=== PATIENT | male | born 1980 | race Caucasian/White ===

== ENCOUNTER 2020-11-08 06:53 | Outpatient (REF) | payer BC, SELFPAY ==
[2020-11-08 11:11] LABS: MANUAL DIFF FLAG NO
[2020-11-08 11:32] LABS: Basophils Percent Auto 0.3 % (0-2); Eosinophils Absolute Auto 0.1 X10*3/uL (0.0-0.4); Eosinophils Percent Auto 1.5 % (0-4); Hematocrit 42.6 % (42-52); Hemoglobin 14.3 g/dl (14.0-18.0); Imm Gran Abs Auto 0.01 X10*3/uL (0.00-0.03); Imm Gran Pct Auto 0.3 % (0.0-0.4); Lymphocytes Absolute Auto 1.6 X10*3/uL (1.2-4.9); Mean Corpuscular HGB Conc 33.6 g/dl (31.0-36.0); Mean Corpuscular Hemoglobin 33.3 pg (27.0-33.0); Mean Corpuscular Volume 99.3 fL (80-98); Mean Platelet Volume 10.6 fL (9.4-12.4); Monocytes Absolute Auto 0.5 X10*3/uL (0.1-1.2); Monocytes Percent Auto 11.5 % (2-11); Neutrophils Absolute Auto 1.8 X10*3/uL (2.0-8.3); Neutrophils Percent Auto 45.4 % (45-73); Platelet Count 212 X10*3/uL (160-400); Red Blood Count 4.29 X10*6/uL (4.60-5.80); Red Cell Distribution Width 11.7 % (11.0-16.0)
[2020-11-08 11:47] LABS: Alanine Aminotransferase 21 U/L (0-40); Albumin Level 4.4 g/dL (3.5-5.0); Alkaline Phosphatase 52 U/L (39-117); Anion Gap 17 (12-20); Aspartate Amino Transferase 20 U/L (5-37); Bilirubin Total 0.6 mg/dL (0.0-1.0); Blood Urea Nitrogen 13 mg/dL (9-16); Calcium 9.1 mg/dL (8.4-10.2); Carbon Dioxide 25 mmol/L (22-29); Chloride 101 mmol/L (96-108); Cholesterol 166 mg/dL; Estimated Glomerular Filt Rate > 60; Glucose Fasting 95 mg/dL (60-99); HDL Cholesterol 58 mg/dL; LDL Cholesterol Calculated 96 mg/dl; Potassium 4.5 mmol/l (3.3-5.1); Sodium 138 mmol/L (135-145); Triglycerides 63 mg/dL
[2020-11-08 11:52] LABS: Appearance Urine CLEAR; Color Urine YELLOW; Glucose Urine UA NEG (NEG); Leukocyte Esterase Urine NEG (NEG); Nitrite Urine NEG (NEG); Urine Blood TRACE (NEG); Urine Ketones NEG (NEG); Urine Protein NEG (NEG-TRACE)
[2020-11-08 12:10] LABS: RBC Urine 0-2 /HPF (0); Squamous Epithelial Cell Urine TRACE /LPF; WBC Urine 0 /HPF (0-4)
[2020-11-08 12:12] LABS: TSH reflex Free T4 2.04 mIU/mL (0.32-4.0)
== END 2020-11-08 06:54 | disposition home or self-care (01) ==
LOC: HO.HMGCLDS 06:53
PROVIDERS: PCP Internal Medicine; Visit Provider Internal Medicine
DX: Z00.00 Encounter for general adult medical examination without abnormal findings (principal)
CPT/HCPCS: 36415; 80053; 80061; 81001; 84443; 85025

== ENCOUNTER 2020-12-22 12:15 | Outpatient (REF) | payer BC, SELFPAY | END 2020-12-22 12:16 | disposition home or self-care (01) | LOC: HO.LAB 12:15 | PROVIDERS: Visit Provider Internal Medicine | DX: Z20.822 Contact with and (suspected) exposure to COVID-19 (principal) | CPT/HCPCS: 36415; C9803; U0003; U0005 ==

== ENCOUNTER 2021-11-07 14:29 | Outpatient (REF) | payer BC, SELFPAY ==
[2021-11-07 15:26] LABS: Influenza A PCR NEGATIVE (Negative); Influenza B PCR NEGATIVE (Negative); Resp Syncy Virus RNA Qual PCR NEGATIVE (Negative); SARS COV2 PCR INHOUSE POSITIVE (Negative)
== END 2021-11-07 14:30 | disposition home or self-care (01) ==
LOC: HO.LNP 14:29
PROVIDERS: Visit Provider Physician Assistant
DX: Z20.822 Contact with and (suspected) exposure to COVID-19 (principal)
CPT/HCPCS: 0241U

== ENCOUNTER 2022-11-27 06:47 | Outpatient (REF) | payer BC, SELFPAY ==
--- NOTE | ~2022-11-27 | XR_ITS ---
EXAMINATION: XR ELBOW, RIGHT XR FOREARM, RIGHT XR HAND/WRIST, RIGHT CLINICAL INFORMATION: Pain in the right forearm, wrist, and elbow COMPARISON: None TECHNIQUE: AP, lateral, and oblique views of the right elbow. AP and lateral views of the right forearm. PA, lateral, oblique, and navicular views of the right hand and wrist. FINDINGS: RIGHT ELBOW: Slight osseous prominence at the sublime tubercle of the coronoid process. No fracture or malalignment. Bone mineralization is normal. Joint spaces are well-preserved. Soft tissues are unremarkable. No joint effusion. RIGHT FOREARM: No fracture or malalignment. Bone mineralization is normal. Soft tissues are unremarkable. No acute osseous findings. 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 Joints otherwise well-preserved. No fracture or malalignment. Bone mineralization is normal. No erosions. Soft tissues are unremarkable. Carpal alignment is normal. XR/XR hand wrist RT IMPRESSION: 1. Osseous prominence at the sublime tubercle of the coronoid process of the ulna which may reflect chronic stress-related changes at the insertion of the UCL. Otherwise normal radiographs of the elbow. 2. 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 Otherwise normal radiographs of the hand and wrist. 3. Normal forearm radiographs.
--- NOTE | ~2022-11-27 | XR_ITS ---
EXAMINATION: XR ELBOW, RIGHT XR FOREARM, RIGHT XR HAND/WRIST, RIGHT CLINICAL INFORMATION: Pain in the right forearm, wrist, and elbow COMPARISON: None TECHNIQUE: AP, lateral, and oblique views of the right elbow. AP and lateral views of the right forearm. PA, lateral, oblique, and navicular views of the right hand and wrist. FINDINGS: RIGHT ELBOW: Slight osseous prominence at the sublime tubercle of the coronoid process. No fracture or malalignment. Bone mineralization is normal. Joint spaces are well-preserved. Soft tissues are unremarkable. No joint effusion. RIGHT FOREARM: No fracture or malalignment. Bone mineralization is normal. Soft tissues are unremarkable. No acute osseous findings. 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 Joints otherwise well-preserved. No fracture or malalignment. Bone mineralization is normal. No erosions. Soft tissues are unremarkable. Carpal alignment is normal. XR/XR forearm RT 2V IMPRESSION: 1. Osseous prominence at the sublime tubercle of the coronoid process of the ulna which may reflect chronic stress-related changes at the insertion of the UCL. Otherwise normal radiographs of the elbow. 2. 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 Otherwise normal radiographs of the hand and wrist. 3. Normal forearm radiographs.
--- NOTE | ~2022-11-27 | XR_ITS ---
EXAMINATION: XR ELBOW, RIGHT XR FOREARM, RIGHT XR HAND/WRIST, RIGHT CLINICAL INFORMATION: Pain in the right forearm, wrist, and elbow COMPARISON: None TECHNIQUE: AP, lateral, and oblique views of the right elbow. AP and lateral views of the right forearm. PA, lateral, oblique, and navicular views of the right hand and wrist. FINDINGS: RIGHT ELBOW: Slight osseous prominence at the sublime tubercle of the coronoid process. No fracture or malalignment. Bone mineralization is normal. Joint spaces are well-preserved. Soft tissues are unremarkable. No joint effusion. RIGHT FOREARM: No fracture or malalignment. Bone mineralization is normal. Soft tissues are unremarkable. No acute osseous findings. 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 Joints otherwise well-preserved. No fracture or malalignment. Bone mineralization is normal. No erosions. Soft tissues are unremarkable. Carpal alignment is normal. XR/XR elbow RT min 3V IMPRESSION: 1. Osseous prominence at the sublime tubercle of the coronoid process of the ulna which may reflect chronic stress-related changes at the insertion of the UCL. Otherwise normal radiographs of the elbow. 2. 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 Otherwise normal radiographs of the hand and wrist. 3. Normal forearm radiographs.
[2022-11-27 06:52] LABS: MANUAL DIFF FLAG NO
[2022-11-27 07:31] LABS: Basophils Percent Auto 0.4 % (0-2); Eosinophils Absolute Auto 0.1 X10*3/uL (0.0-0.4); Eosinophils Percent Auto 1.7 % (0-4); Hematocrit 42.3 % (42.0-52.0); Hemoglobin 14.5 g/dl (14.0-18.0); Imm Gran Abs Auto 0.01 X10*3/uL (0.00-0.03); Imm Gran Pct Auto 0.2 % (0.0-0.4); Lymphocytes Absolute Auto 1.5 X10*3/uL (1.2-4.9); Lymphocytes Percent Auto 31.6 % (20-40); Mean Corpuscular HGB Conc 34.3 g/dl (31.0-36.0); Mean Corpuscular Volume 99.1 fL (80.0-98.0); Mean Platelet Volume 9.6 fL (9.4-12.4); Monocytes Absolute Auto 0.5 X10*3/uL (0.1-1.2); Monocytes Percent Auto 10.5 % (2-11); Neutrophils Absolute Auto 2.6 x10*3/uL (2.0-8.3); Neutrophils Percent Auto 55.6 % (45-73); Platelet Count 212 X10*3/uL (160-400); Red Blood Count 4.27 X10*6/uL (4.60-5.80); Red Cell Distribution Width 11.9 % (11.0-16.0); White Blood Count 4.6 X10*3/uL (4.8-10.8)
[2022-11-27 07:38] LABS: Appearance Urine Clear; Color Urine Yellow; Glucose Urine UA Negative (Negative); Leukocyte Esterase Urine Negative (Negative); Nitrite Urine Negative (Negative); PH 6.5 (5.0-9.0); Specific Gravity - Urine <= 1.005 (1.005-1.025); Urine Blood Negative (Negative); Urine Ketones Negative (Negative); Urine Protein Negative (Neg-Trace)
[2022-11-27 08:06] LABS: Alanine Aminotransferase 22 U/L (0-40); Albumin Level 4.4 g/dL (3.5-5.0); Alkaline Phosphatase 55 U/L (39-117); Anion Gap 13 (12-20); Aspartate Amino Transferase 19 U/L (5-37); Blood Urea Nitrogen 11 mg/dL (9-16); Calcium 9.5 mg/dL (8.4-10.2); Carbon Dioxide 27 mmol/L (22-29); Chloride 104 mmol/L (96-108); Cholesterol 180 mg/dL; Estimated Glomerular Filt Rate > 60; Glucose Fasting 102 mg/dL (60-99); HDL Cholesterol 55 mg/dL; LDL Cholesterol Calculated 109 mg/dl; Potassium 4.2 mmol/L (3.3-5.1); Sodium 140 mmol/L (135-145); Triglycerides 84 mg/dL
[2022-11-27 08:23] LABS: TSH reflex Free T4 2.76 uIU/mL (0.32-4.0); Vitamin D 25-OH Total 33.3 ng/mL (>30)
== END 2022-11-27 06:48 | disposition home or self-care (01) ==
LOC: HO.XRAY 06:47
PROVIDERS: PCP Internal Medicine; Visit Provider Internal Medicine
DX: Z00.00 Encounter for general adult medical examination without abnormal findings (principal); M79.631 Pain in right forearm; M25.521 Pain in right elbow; M25.531 Pain in right wrist; E78.00 Pure hypercholesterolemia, unspecified; R30.0 Dysuria; E55.9 Vitamin D deficiency, unspecified
CPT/HCPCS: 36415; 73080; 73090; 73110; 73130; 80053; 80061; 81003; 82306; 84443; 85025

== ENCOUNTER 2023-01-03 14:30 | Outpatient (REF) | payer BC, SELFPAY ==
--- NOTE | ~2023-01-03 | XR_ITS ---
EXAMINATION: XR ABDOMEN KUB CLINICAL INDICATION: Right upper quadrant pain. COMPARISON: None TECHNIQUE: AP view of the abdomen. FINDINGS: The bowel gas pattern is normal with no evidence of ileus or obstruction. No unusual soft tissue calcifications are noted. Calcifications overlying the pelvis likely represent phleboliths. Mild thoracic dextro scoliosis is seen with apex at L2-3. XR/XR KUB IMPRESSION: Nonobstructive bowel gas pattern. No other significant abnormality.
== END 2023-01-03 14:31 | disposition home or self-care (01) ==
LOC: HO.XRAY 14:30
PROVIDERS: PCP Internal Medicine; Visit Provider Hospitalist
DX: R10.11 Right upper quadrant pain (principal)
CPT/HCPCS: 74018

== ENCOUNTER 2023-01-29 07:41 | Outpatient (REF) | payer BC, SELFPAY ==
--- NOTE | ~2023-01-29 | US_ITS ---
EXAMINATION: US ABDOMEN COMPLETE CLINICAL INFORMATION: Right upper quadrant pain. COMPARISON: X-ray abdomen KUB 01/03/2023. TECHNIQUE: Real-time imaging of the abdominal viscera. FINDINGS: PANCREAS: Normal. ABDOMINAL AORTA: The proximal, mid, and distal segments are normal in caliber. INFERIOR VENA CAVA: Visualized portions are normal. LIVER: Normal. The liver is normal in size. The liver contour is normal. Parenchymal echogenicity is normal. No focal hepatic lesion. There is no intrahepatic biliary duct dilatation seen. GALLBLADDER: Normal. The gallbladder is physiologically distended without evidence of stones, sludge, polyps, wall thickening or pericholecystic fluid. COMMON BILE DUCT: Normal in caliber measuring 0.5 cm in diameter. RIGHT KIDNEY: Normal. No hydronephrosis. No renal calculi or focal parenchymal lesions. The kidney measures 10.4 cm in maximum dimension. LEFT KIDNEY: There is a 1.0 cm well-circumscribed nearly anechoic lesion with posterior through transmission and sharp back wall consistent with a minimally complex cyst. No imaging follow-up is recommended. No hydronephrosis or renal calculi. The kidney measures 10.2 cm in maximum dimension. SPLEEN: Normal. The spleen measures 9.6 cm in maximum dimension. FREE FLUID: None. US/US abdomen complete IMPRESSION: No explanation for right upper quadrant pain.
== END 2023-01-29 07:42 | disposition home or self-care (01) ==
LOC: HO.US 07:41
PROVIDERS: PCP Internal Medicine; Visit Provider Internal Medicine
DX: R10.11 Right upper quadrant pain (principal)
CPT/HCPCS: 76700

== ENCOUNTER 2023-02-06 13:21 | Outpatient (AMB) | payer BC, SELFPAY ==
[2023-02-06 13:30] VITALS: BP 112/68; PULSE 86; TEMP 36.1; O2SAT 99; BMI 23.8
--- NOTE | 2023-02-06 13:30 | A.OFFPC_ITS ---
Vital Signs 02/06/23 13:30 Height 6 ft Weight 176 lb BMI 23.8 BP 112/68 Blood Pressure Location Lt brachial Position Sitting Pulse 86 Pulse Source Pulse Oximeter Temp 96.9 F Temp Source Skin Pulse Oximetry (%) 99 Oxygen Delivery Method Room Air Intake Visit Reasons: review ultrasound results Intake Note: Patient is here to follow up on U/s results [employer] Specialist Required: No Allergies bee sting Allergy (Unknown, Uncoded 11/22/23 17:11) Unknown Medication List - Last Reconciled 02/06/23 by Jordon Tenorio MD No Known Home Meds Tobacco use date assessed: 02/06/23 HPI review ultrasound results HPI Details Patient comes in today for follow up of his recent abdominal symptoms He was seen at the walk-in in [place] last month on 01/03/23 for left lower quadrant abdominal pain that he felt started after eating some tongan fries He was initially sent for a KUB for further evaluation, which came out negative He was subsequently sent for an abdominal ultrasound, which came out normal as well with no pertinent findings to help explain his recent abdominal symptoms States that he is currently experiencing on and off pain but recently, the pain is mostly over his left upper abdominal area States that the pain sometimes gets worse when he is eating He denies any associated nausea or vomiting and states that his bowel movements have been regular - denies any constipation or diarrhea He denies any headaches or dizziness Denies any chest pains, no shortness of breath PFSH Medical History No significant past medical history Surgical History No pertinent past surgical history Family History Father Alive and well Mother Alive and well Social History Housing: House Alcohol intake: current Alcohol intake frequency: a few times a month Patient Tobacco Use Status: Never used Tobacco e-Cigarette/Vaping Use: Never Used Second Hand Smoke Exposure: No service: Yes Current occupational status: employed Cognitive needs: No Hearing needs: No Vision needs: No Questionnaire PHQ-9 Over the last 2 weeks, how often have you been bothered by any of the following problems? 1. Little interest or pleasure in doing things: not at all 2. Feeling down, depressed, or hopeless: not at all 3. Trouble falling or staying asleep, or sleeping too much: not at all 4. Feeling tired or having little energy: not at all 5. Poor appetite or overeating: not at all 6. Feeling bad about yourself - or that you are a failure or have let yourself or your family down: not at all 7. Trouble concentrating on things, such as reading the newspaper or watching television: not at all 8. Moving or speaking so slowly that other people could have noticed. Or the opposite - being so fidgety or restless that you have been moving around a lot more than usual: not at all 9. Thoughts that you would be better off or of hurting yourself in some way: not at all Total score: 0 Depression Screening Interpretation: Negative 11517 - PHQ-9 Billing: Yes Source: Developed by Drs. Mike Lin, Sneha Manzo, Kunal Almaraz and colleagues, with an educational mainor from [employer]. Thrive Questionnaire Date Thrive assessed: 11/19/22 AUDIT C Alcohol Use Questionnaire (AUDIT-C) 1. How often do you have a drink containing alcohol?: 2-4 times a month 2. How many drinks containing alcohol do you have on a typical day when you are drinking?: 1 or 2 3. How often do you have six or more drinks on one occasion?: Never Total Score: 2 Score Reviewed/Action Taken: Yes MARLO-7 AMB Questionnaire MARLO-7 Date MARLO - 7 assessed: 11/19/22 Feeling nervous, anxious, or on edge: 0 = Not at all Not being able to stop or control worryin = Not at all Worrying too much about different things: 0 = Not at all Trouble relaxin = Not at all Being so restless that it is hard to sit still: 0 = Not at all Becoming easily annoyed or irritable: 0 = Not at all Feeling afraid as if something awful might happen: 0 = Not at all Total MRALO-7 score (0-4 normal; 5-9 mild; 10-14 moderate; 15-21 severe): 0 Source: Developed by Drs. Mike Lin, Sneha Manzo, Kunal Almaraz and colleagues, with an educational mainor from [employer]. Review of Systems Const Denies fatigue, Denies fever(s) and Denies headache(s) ENT Denies dysphagia, Denies dizziness, Denies otalgia, Denies headache(s), Denies neck pain, Denies odynophagia and Denies sore throat Card Denies chest pain, Denies palpitations and Denies dyspnea Resp Denies cough and Denies dyspnea GI Reports abdominal pain (on and off, over the left upper abdomen - see HPI), Denies constipation, Denies dysphagia, Denies heartburn, Denies diarrhea, Denies nausea, Denies odynophagia and Denies vomiting Denies dysuria, Denies nocturia and Denies urinary frequency Musc Denies neck pain Neuro Denies dizziness and Denies headache(s) Endo Denies fatigue and Denies palpitations Physical exam (Primary Care) Vital Signs: Last Vital Signs Temp 96.9 F 02/06/23 13:30 Pulse 86 02/06/23 13:30 BP 112/68 02/06/23 13:30 Pulse Ox 99 02/06/23 13:30 Oxygen Delivery Method Room Air 02/06/23 13:30 BMI result Body Mass Index 23.8 Tobacco/Smoking Status: Tobacco use Status Tobacco use date assessed 02/06/23 02/06/23 13:31 Patient Tobacco Use Status Never used Tobacco 02/06/23 13:31 e-Cigarette/Vaping Use Never Used 02/06/23 13:31 PHQ-9: PHQ-9 Score PHQ-9: Total score 0 11/24/23 01:17 Depression Screening Interpretation: Negative Thrive Assessment: Date of Thrive Assessment Date Thrive assessed 11/19/22 02/06/23 13:31 Const General: no acute distress and alert Neck Neck: Yes no lymphadenopathy and Yes supple Resp Auscultation: clear to auscultation bilaterally, no rales and no wheezes Cardio Rate: regular rate Rhythm: regular rhythm Heart sounds: no murmurs GI Palpation (GI): Soft to palpation, Tenderness to palpation present (GI) (mild) in the LUQ, no guarding, not rigid, No hepatosplenomegaly present and No Rebound tenderness present Extrem General: Yes no clubbing, cyanosis or edema Assessment and Plan Assessment & Plan (1) Gastritis: Code(s): K29.70 - Gastritis, unspecified, without bleeding Qualifiers: Gastritis type: unspecified gastritis Chronicity: unspecified Gastritis bleeding: without bleeding Qualified Code(s): K29.70 - Gastritis, unspecified, without bleeding Plan: Discussed dietary restrictions Have advised patient again that his recent abdominal US came back normal but discussed that if he does have gastritis as suggested by his symptoms, an US would not be helpful Will have him start taking Omeprazole 40 mg QD x 14 days and if his symptoms are much better by then, can take this PRN Will also start him on Famotidine 20 mg Q HS PRN He is advised to call if he still does not experience any improvement of his symptoms in a month or so - may need referral to GI and EGD for further evaluation then Plan To return as scheduled in November 2023 for his annual physical examination Medications: New famotidine 20 mg PO BEDTIME 30 tabs 1RF 30 days omeprazole Take daily for 14 days and if symptoms are better then, can take as needed 40 mg PO DAILY 30 caps 1RF 30 days Coding Level of Care Code Est Pt Level 3 (56824) Diagnoses Gastritis without bleeding, unspecified chronicity, unspecified gastritis type K29.70 Gastritis type: unspecified gastritis Chronicity: unspecified Gastritis bleeding: without bleeding
== END 2023-02-06 14:07 | disposition home or self-care (01) ==
LOC: HO.HMGH 13:21
PROVIDERS: PCP Internal Medicine; Visit Provider Internal Medicine
DX: K29.70 Gastritis, unspecified, without bleeding (principal)
CPT/HCPCS: 99213

== ENCOUNTER 2023-11-22 16:47 | Outpatient (AMB) | payer OTHER, SELFPAY ==
--- NOTE | 2023-11-22 16:52 | A.OFFPC_ITS ---
Vital Signs 11/22/23 16:53 11/22/23 17:22 Height 6 ft Weight 171 lb 8 oz BMI 23.3 BP 148/102 H 136/82 Blood Pressure Location Lt brachial Lt brachial Position Sitting Sitting Pulse 60 Pulse Source Pulse Oximeter Pulse Oximetry (%) 99 Oxygen Delivery Method Room Air Intake Visit Reasons: Annual PE Intake Note: Patient is here today for a physical. 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 Accompanied by: Self / Same As Patient Allergies bee sting Allergy (Unknown, Uncoded 11/22/23 17:11) Unknown Medication List - Last Reconciled 11/22/23 by Jordon Tenorio MD famotidine 20 mg PO BEDTIME 30 days omeprazole 40 mg PO DAILY 30 days Tobacco use date assessed: 11/22/23 Dental Screening Dental Screen Date: 11/22/23 Did you have a dental visit in the last 12 months?: No Did you have a dental problem in the last 6 months where you did not have access to dental care?: No Was dental information given to patient?: No HPI Annual PE HPI Details Patient comes in today for his annual physical examination States that he feels okay He denies any headaches or dizziness Denies any chest pains, no SOB No nausea/vomiting, no abdominal pain although he still has occasional discomfort over the left upper area his abdomen He has not noticed any direct association of his abdominal symptoms to eating or drinking States that he has not taken Omeprazole of Famotidine lately as he could not get them filled at his pharmacy - was supposedly advised that he can get these OTC but he is not sire which one to get No change in bowel habits noted He denies any acute urinary symptoms Relates experiencing some stress lately as his is currently undergoing treatment for breast cancer [facility] Medical History No significant past medical history Surgical History No pertinent past surgical history Family History Father Alive and well Mother Alive and well Social History Housing: House Alcohol intake: current Alcohol intake frequency: a few times a month Patient Tobacco Use Status: Never used Tobacco e-Cigarette/Vaping Use: Never Used Second Hand Smoke Exposure: No service: Yes Current occupational status: employed Cognitive needs: No Hearing needs: No Vision needs: No Questionnaire PHQ-9 Over the last 2 weeks, how often have you been bothered by any of the following problems? 1. Little interest or pleasure in doing things: not at all 2. Feeling down, depressed, or hopeless: not at all 3. Trouble falling or staying asleep, or sleeping too much: not at all 4. Feeling tired or having little energy: not at all 5. Poor appetite or overeating: not at all 6. Feeling bad about yourself - or that you are a failure or have let yourself or your family down: not at all 7. Trouble concentrating on things, such as reading the newspaper or watching television: not at all 8. Moving or speaking so slowly that other people could have noticed. Or the opposite - being so fidgety or restless that you have been moving around a lot more than usual: not at all 9. Thoughts that you would be better off or of hurting yourself in some way: not at all Total score: 0 Depression Screening Interpretation: Negative Depression Screening Done: Yes 87692 - PHQ-9 Billing: Yes Source: Developed by Drs. Mike Lin, Sneha Manzo, Kunal Almaraz and colleagues, with an educational mainor from [employer]. Thrive Questionnaire Date Thrive assessed: 11/22/23 I am a: Patient What is your living situation today?: I have a steady place to live Within the past 12 months, did the food you bought not last and you didn't have the money to get more?: Never true Within the past 12 months, did you worry whether your food would run out before you got money to buy more?: Never true Do you have trouble paying for medicines?: No Do you have trouble getting transportation to medical appointments?: No Do you have trouble paying your heating and electricity bill?: No Do you have trouble taking care of your child, family member or friend?: No Do you have trouble with day-to-day activities such as bathing, preparing meals, shopping, managing finances, etc.?: No Are you currently unemployed and looking for a job?: No Are you interested in more education?: No Please select the resources that you would like help with: None Currently or been in a relationship where the following occur: no concerns reported THRIVE Score: 0 AUDIT C Alcohol Use Questionnaire (AUDIT-C) 1. How often do you have a drink containing alcohol?: Monthly or less 2. How many drinks containing alcohol do you have on a typical day when you are drinking?: 1 or 2 3. How often do you have six or more drinks on one occasion?: Never Total Score: 1 Score Reviewed/Action Taken: Yes MARLO-7 AMB Questionnaire MARLO-7 Date MARLO - 7 assessed: 11/22/23 Feeling nervous, anxious, or on edge: 0 = Not at all Not being able to stop or control worryin = Not at all Worrying too much about different things: 0 = Not at all Trouble relaxin = Not at all Being so restless that it is hard to sit still: 0 = Not at all Becoming easily annoyed or irritable: 0 = Not at all Feeling afraid as if something awful might happen: 0 = Not at all Total MARLO-7 score (0-4 normal; 5-9 mild; 10-14 moderate; 15-21 severe): 0 Source: Developed by Drs. Mike Lin, Sneha Manzo, Kunal Almaraz and colleagues, with an educational mainor from [employer]. Review of Systems Const Denies chills, Denies fatigue, Denies fever(s), Denies headache(s), Denies malaise and Denies weakness Eyes Denies blurry vision, Denies change in vision, Denies irritation and Denies itchy eyes ENT Denies dysphagia, Denies dizziness, Denies otalgia, Denies headache(s), Denies nasal congestion, Denies neck pain, Denies odynophagia and Denies sore throat Card Denies chest pain, Denies rapid heart rate, Denies irregular heart rhythm, Denies palpitations and Denies dyspnea Resp Denies chest congestion, Denies cough, Denies dyspnea and Denies wheezing GI Denies abdominal pain (but (+) occasional discomfort over his left upper abdominal area), Denies bloating, Denies constipation, Denies dysphagia, Denies heartburn, Denies diarrhea, Denies nausea, Denies odynophagia and Denies vomiting Denies hematuria, Denies difficulty urinating, Denies dysuria, Denies urinary frequency and Denies urinary urgency Musc Denies back pain, Denies arthralgias, Denies joint swelling, Denies muscle weakness and Denies neck pain Skin/Breast Denies change in pigmentation, Denies lesions, Denies rash and Denies unusual bruising Neuro Denies dizziness, Denies headache(s), Denies paresthesias and Denies weakness Endo Denies fatigue and Denies palpitations Aller/Immun Denies itchy eyes and Denies wheezing Physical exam (Primary Care) Vital Signs: Last Vital Signs Pulse 60 11/22/23 16:53 BP 136/82 11/22/23 17:22 Pulse Ox 99 11/22/23 16:53 Oxygen Delivery Method Room Air 11/22/23 16:53 BMI result Body Mass Index 23.3 Tobacco/Smoking Status: Tobacco use Status Tobacco use date assessed 11/22/23 11/22/23 16:55 Patient Tobacco Use Status Never used Tobacco 11/22/23 16:55 e-Cigarette/Vaping Use Never Used 11/22/23 16:55 PHQ-9: PHQ-9 Score PHQ-9: Total score 0 11/22/23 17:32 Depression Screening Interpretation: Negative Thrive Assessment: Date of Thrive Assessment Date Thrive assessed 11/22/23 11/22/23 16:57 Currently or been in a relationship where the following occur: no concerns reported Const General: no acute distress, alert and awake Orientation/consciousness: patient oriented x3 HENMT Head: Yes normocephalic and Yes atraumatic Ears: external ears normal, TM's normal bilaterally and EAC's normal General nose exam: No nasal discharge present Face and sinus: Yes normal facial exam and Yes sinuses nontender Teeth and gingiva: dentition normal Throat: Yes posterior oropharynx normal and Yes tonsils normal (no TP congestion) Eyes Eyelids: Yes eyelids normal Conjunctivae: conjunctivae normal Pupils: Equal, round and reactive pupils present EOM: EOMs intact bilaterally Neck Neck: Yes no lymphadenopathy and Yes supple Thyroid: Thyroid normal Resp Auscultation: clear to auscultation bilaterally, no rales and no wheezes Cardio Rate: regular rate Rhythm: regular rhythm Heart sounds: no murmurs GI Palpation (GI): Soft to palpation, nontender and No hepatosplenomegaly present Auscultation: normal bowel sounds General: Yes no CVA tenderness Back/Spine/Pelvis Back: no CVA tenderness Thoracic/Lumbar Spine: thoracic and lumbar spine normal to inspection Skin Lesions: no lesions Rashes: no rashes Neuro General: patient oriented x3, moves all extremities, no focal motor deficits and CN's II-XI intact bilaterally Cranial nerves: Yes Equal, round and reactive pupils present Cognition (Neuro): normal cognition Gait exam (Neuro): Normal gait present Extrem General: Yes no clubbing, cyanosis or edema Assessment and Plan Assessment & Plan (1) Annual physical exam: Code(s): Z00.00 - Encounter for general adult medical examination without abnormal findings Plan: Check labs He is not yet due to start colon cancer screening (recommendation is to start at 44 y/0) (2) Abdominal discomfort in left upper quadrant: Code(s): R10.12 - Left upper quadrant pain Plan: Discussed that he likely has some gastritis, based on his symptoms Reinforced dietary restrictions similar to the ones for GERD that he was instructed on before Will have him start back on Omeprazole 20 mg QD x 1 month, then PRN, as well as Famotidine 20 mg Q HS PRN - advised that these are both available OTC and that his insurance ([employer]) will likely NOT cover them Advised that if his symptoms continue to recur often after this regimen, he may need referral to GI for EGD for further evaluation (3) Raynaud's syndrome: Code(s): I73.00 - Raynaud's syndrome without gangrene Qualifiers: Raynaud?s-associated gangrene presence: without gangrene Qualified Code(s): I73.00 - Raynaud's syndrome without gangrene Plan: Patient cautioned again on avoidance of extremes of temperature (especially cold temperatures) as much as possible to minimize or prevent his symptoms from flaring up, and advised that he is more prone to develop frostbite injuries compared to the average individual Patient does not smoke and is also encouraged to avoid second hand smoke as well There is no indication for any Rx or other interventions at this time (4) Benign microscopic hematuria: Code(s): R31.1 - Benign essential microscopic hematuria Plan: (+) trace hematuria on his labs done a couple of years ago - patient reports NO acute urinary symptoms Will recheck urinalysis for follow up Will consider renal US for further evaluation if hematuria persists (5) Elevated blood-pressure reading, without diagnosis of hypertension: Code(s): R03.0 - Elevated blood-pressure reading, without diagnosis of hypertension Plan: Discussed low sodium diet Patient's blood pressure was initially very high at 148/102 mm when it was checked; BP gradually came down to 136/82 mm when it was rechecked during his exam Patient is instructed to continue monitoring his blood pressure regularly for now (6) Dermatitis: Code(s): L30.9 - Dermatitis, unspecified Plan: Continue Triamcinolone acetonide cream 0.025% apply to rash on hands 2 to 3 times a day as needed Plan Follow up in 6 months Orders: Orders Comprehensive [place]. Panel Fast 11/22/23 E78.00 - Pure hypercholesterolemia, unspecified, Z00.00 - Encounter for general adult medical examination without abnormal findings TSH reflex Free T4 11/22/23 E78.00 - Pure hypercholesterolemia, unspecified, Z00.00 - Encounter for general adult medical examination without abnormal findings Vitamin D 25-OH Total 11/22/23 E55.9 - Vitamin D deficiency, unspecified, Z00.00 - Encounter for general adult medical examination without abnormal findings Hemoglobin A1c 11/22/23 R73.01 - Impaired fasting glucose, Z00.00 - Encounter for general adult medical examination without abnormal findings Complete Blood Count Auto Diff 11/22/23 Z00.00 - Encounter for general adult medical examination without abnormal findings Lipid Panel 11/22/23 E78.00 - Pure hypercholesterolemia, unspecified, Z00.00 - Encounter for general adult medical examination without abnormal findings UA CC w/rflx Micro + Cult 11/22/23 R30.0 - Dysuria, Z00.00 - Encounter for general adult medical examination without abnormal findings Medications: Changed From omeprazole Take daily for 14 days and if symptoms are better then, can take as needed 40 mg PO DAILY 30 days 30 caps 1RF To omeprazole Take daily for 30 days and if symptoms are better then, can take as needed 20 mg PO DAILY 30 caps 1RF 30 days From famotidine 20 mg PO BEDTIME 30 days 30 tabs 1RF To famotidine 20 mg PO BEDTIME PRN 30 tabs 1RF abdominal pain 30 days Coding Level of Care Code Est Pt Prev Care 40-64y(30439) Diagnoses Annual physical exam Z00.00 Abdominal discomfort in left upper quadrant R10.12 Raynaud's disease without gangrene I73.00 Raynaud?s-associated gangrene presence: without gangrene Benign microscopic hematuria R31.1 Elevated blood-pressure reading, without diagnosis of hypertension R03.0 Dermatitis L30.9
[2023-11-22 16:53] VITALS: BP 148/102; PULSE 60; O2SAT 99; BMI 23.3
[2023-11-22 17:22] VITALS: BP 136/82
== END 2023-11-22 17:32 | disposition home or self-care (01) ==
PROVIDERS: PCP Internal Medicine; Visit Provider Internal Medicine
DX: Z00.00 Encounter for general adult medical examination without abnormal findings (principal); R10.12 Left upper quadrant pain; I73.00 Raynaud's syndrome without gangrene; R31.1 Benign essential microscopic hematuria; R03.0 Elevated blood-pressure reading, without diagnosis of hypertension; L30.9 Dermatitis, unspecified
CPT/HCPCS: 99396

== ENCOUNTER 2023-11-28 06:50 | Outpatient (REF) | payer OTHER, SELFPAY ==
[2023-11-28 07:12] LABS: MANUAL DIFF FLAG NO
[2023-11-28 07:55] LABS: Appearance Urine Clear; Color Urine Yellow; Glucose Urine UA Negative (Negative); Leukocyte Esterase Urine Negative (Negative); Nitrite Urine Negative (Negative); PH 6.5 (5.0-9.0); Specific Gravity - Urine <= 1.005 (1.005-1.025); Urine Blood Negative (Negative); Urine Ketones Negative (Negative); Urine Protein Negative (Neg-Trace)
[2023-11-28 07:59] LABS: Estimated Average Glucose 88 mg/dL; Hemoglobin A1c % 4.7 % (<6.0)
[2023-11-28 08:01] LABS: Basophils Percent Auto 0.2 % (0-2); Eosinophils Absolute Auto 0.1 X10*3/uL (0.0-0.4); Eosinophils Percent Auto 2.4 % (0-4); Hematocrit 43.4 % (42.0-52.0); Hemoglobin 14.8 g/dl (14.0-18.0); Imm Gran Abs Auto 0.01 X10*3/uL (0.00-0.03); Imm Gran Pct Auto 0.2 % (0.0-0.4); Lymphocytes Absolute Auto 1.2 X10*3/uL (1.2-4.9); Lymphocytes Percent Auto 27.9 % (20-40); Mean Corpuscular HGB Conc 34.1 g/dl (31.0-36.0); Mean Corpuscular Hemoglobin 33.6 pg (27.0-33.0); Mean Corpuscular Volume 98.6 fL (80.0-98.0); Mean Platelet Volume 10.1 fL (9.4-12.4); Monocytes Absolute Auto 0.5 X10*3/uL (0.1-1.2); Monocytes Percent Auto 12.4 % (2-11); Neutrophils Absolute Auto 2.4 x10*3/uL (2.0-8.3); Neutrophils Percent Auto 56.9 % (45-73); Platelet Count 178 X10*3/uL (160-400); Red Cell Distribution Width 11.8 % (11.0-16.0); White Blood Count 4.2 X10*3/uL (4.8-10.8)
[2023-11-28 08:28] LABS: Alanine Aminotransferase 16 U/L (0-40); Albumin Level 4.4 g/dL (3.5-5.0); Alkaline Phosphatase 56 U/L (39-117); Anion Gap 13 (12-20); Aspartate Amino Transferase 17 U/L (5-37); Bilirubin Total 0.9 mg/dL (0.0-1.0); Blood Urea Nitrogen 20 mg/dL (9-16); Calcium 9.7 mg/dL (8.4-10.2); Carbon Dioxide 28 mmol/L (22-29); Chloride 102 mmol/L (96-108); Cholesterol 161 mg/dL (<200); Estimated Glomerular Filt Rate > 60; Glucose Fasting 92 mg/dL (60-99); HDL Cholesterol 63 mg/dL (>40); LDL Cholesterol Calculated 84 mg/dL (<100); Potassium 4.1 mmol/L (3.3-5.1); Sodium 139 mmol/L (135-145); Total Protein 7.3 g/dL (6.5-8.0); Triglycerides 73 mg/dL (<150)
[2023-11-28 08:46] LABS: TSH reflex Free T4 2.12 uIU/mL (0.32-4.0)
== END 2023-11-28 06:51 | disposition home or self-care (01) ==
LOC: HO.LAB 06:50
PROVIDERS: PCP Internal Medicine; Visit Provider Internal Medicine
DX: Z00.00 Encounter for general adult medical examination without abnormal findings (principal); E78.00 Pure hypercholesterolemia, unspecified; R73.01 Impaired fasting glucose; R30.0 Dysuria; E55.9 Vitamin D deficiency, unspecified
CPT/HCPCS: 36415; 80053; 80061; 81003; 82306; 83036; 84443; 85025

== ENCOUNTER 2024-10-21 15:19 | Outpatient (AMB) | payer OTHER, SELFPAY ==
[2024-10-21 15:22] VITALS: BP 120/76; PULSE 89; O2SAT 97; BMI 23.3
--- NOTE | 2024-10-21 15:22 | MHC.PC.OV ---
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 Required: No Accompanied by: Self / Same As Patient Allergies bee sting Allergy (Unknown, Uncoded 10/22/24 05:48) Unknown Medication List - Last Reconciled 10/22/24 by Jordon Tenorio MD famotidine 20 mg PO BEDTIME PRN 30 days omeprazole 20 mg PO DAILY 30 days terbinafine HCl 250 mg PO DAILY 90 days Tobacco use date assessed: 10/21/24 Dental Screening Dental Screen Date: 10/21/24 Did you have a dental visit in the last 12 months?: No Did you have a dental problem in the last 6 months where you did not have access to dental care?: No Was dental information given to patient?: No HPI Gastroesophageal reflux disease (GERD) HPI Details Patient comes in today for his follow-up visit States that he still has some lingering discomfort and occasional pain over his left upper abdominal area but states that these have improved a lot since his last visit earlier this year States that his symptoms do not seem to be aggravated when he eats or drinks He reports no associated nausea or vomiting and states that he has regular bowel movements with no abnormalities noted in his stool He denies any headaches or dizziness Denies any chest pains, no shortness of breath Patient adds that he continues to experience tinnitus in both ears and states that they are not persistent States that his family has also been urging him to get his hearing checked as he seems to be having a more difficult time hearing nowadays [facility] Medical History No significant past medical history Surgical History No pertinent past surgical history Family History Father Alive and well Mother Alive and well Social History Housing: House Alcohol intake: current Alcohol intake frequency: a few times a month Patient Tobacco Use Status: Never used Tobacco e-Cigarette/Vaping Use: Never Used Second Hand Smoke Exposure: No service: Yes Current occupational status: employed Cognitive needs: No Hearing needs: No Vision needs: No Questionnaire PHQ-9 Over the last 2 weeks, how often have you been bothered by any of the following problems? 1. Little interest or pleasure in doing things: not at all 2. Feeling down, depressed, or hopeless: not at all 3. Trouble falling or staying asleep, or sleeping too much: not at all 4. Feeling tired or having little energy: not at all 5. Poor appetite or overeating: not at all 6. Feeling bad about yourself - or that you are a failure or have let yourself or your family down: not at all 7. Trouble concentrating on things, such as reading the newspaper or watching television: not at all 8. Moving or speaking so slowly that other people could have noticed. Or the opposite - being so fidgety or restless that you have been moving around a lot more than usual: not at all 9. Thoughts that you would be better off or of hurting yourself in some way: not at all Total score: 0 Depression Screening Interpretation: Negative Depression Screening Done: Yes 23287 - PHQ-9 Billing: Yes Source: Developed by Drs. Mike iLn, Sneha Manzo, Kunal Almaraz and colleagues, with an educational mainor from [employer]. Thrive Questionnaire Date Thrive assessed: 10/21/24 I am a: Patient What is your living situation today?: I have a steady place to live Within the past 12 months, did the food you bought not last and you didn't have the money to get more?: Never true Within the past 12 months, did you worry whether your food would run out before you got money to buy more?: Never true Do you have trouble paying for medicines?: No Do you have trouble getting transportation to medical appointments?: No Do you have trouble paying your heating and electricity bill?: No Do you have trouble taking care of your child, family member or friend?: No Do you have trouble with day-to-day activities such as bathing, preparing meals, shopping, managing finances, etc.?: No Are you currently unemployed and looking for a job?: No Are you interested in more education?: No Please select the resources that you would like help with: None Currently or been in a relationship where the following occur: No concerns reported THRIVE Score: 0 AUDIT C Alcohol Use Questionnaire (AUDIT-C) 1. How often do you have a drink containing alcohol?: Monthly or less 2. How many drinks containing alcohol do you have on a typical day when you are drinking?: 1 or 2 3. How often do you have six or more drinks on one occasion?: Never Total Score: 1 Score Reviewed/Action Taken: Yes MARLO-7 AMB Questionnaire MARLO-7 Date MARLO - 7 assessed: 10/21/24 Feeling nervous, anxious, or on edge: 0 = Not at all Not being able to stop or control worryin = Not at all Worrying too much about different things: 0 = Not at all Trouble relaxin = Not at all Being so restless that it is hard to sit still: 0 = Not at all Becoming easily annoyed or irritable: 0 = Not at all Feeling afraid as if something awful might happen: 0 = Not at all Total MARLO-7 score (0-4 normal; 5-9 mild; 10-14 moderate; 15-21 severe): 0 Source: Developed by Drs. Mike Lin, Sneha Manzo, Kunal Almaraz and colleagues, with an educational mainor from [employer]. Review of Systems Const Denies chills, Denies fatigue, Denies fever(s) and Denies headache(s) ENT Denies dysphagia, Denies dizziness, Denies otalgia, Denies headache(s), Reports hearing loss, Denies neck pain, Denies odynophagia, Reports tinnitus (persistent; in both ears) and Denies sore throat Card Denies chest pain, Denies irregular heart rhythm, Denies palpitations and Denies dyspnea Resp Denies chest congestion, Denies cough and Denies dyspnea GI Denies abdominal pain (still (+) occasional discomfort over his left upper abdomen but better now), Denies constipation, Denies dysphagia, Denies heartburn, Denies diarrhea, Denies nausea, Denies odynophagia and Denies vomiting Denies difficulty urinating, Denies dysuria and Denies urinary frequency Musc Denies back pain, Denies arthralgias and Denies neck pain Skin/Breast Denies rash Neuro Denies dizziness, Denies headache(s) and Denies paresthesias Endo Denies fatigue and Denies palpitations Physical exam (Primary Care) Vital Signs: Last Vital Signs Pulse 89 10/21/24 15:22 BP 120/76 10/21/24 15:22 Pulse Ox 97 10/21/24 15:22 Oxygen Delivery Method Room Air 10/21/24 15:22 BMI result Body Mass Index 23.3 Tobacco/Smoking Status: Tobacco use Status Tobacco use date assessed 10/21/24 10/21/24 15:26 Patient Tobacco Use Status Never used Tobacco 10/21/24 15:26 e-Cigarette/Vaping Use Never Used 10/21/24 15:26 PHQ-9: PHQ-9 Score PHQ-9: Total score 0 10/21/24 16:00 Depression Screening Interpretation: Negative Thrive Assessment: Date of Thrive Assessment Date Thrive assessed 10/21/24 10/21/24 15:26 Currently or been in a relationship where the following occur: No concerns reported Const General: no acute distress and alert HENMT Ears: TM's normal bilaterally and EAC's normal (but (+) excessive cerumen in both ears) Throat: Yes posterior oropharynx normal and Yes tonsils normal (no TP congestion) Neck Neck: Yes supple and No lymphadenopathy Thyroid: Thyroid normal Resp Auscultation: clear to auscultation bilaterally, no rales and no wheezes Cardio Rate: regular rate Rhythm: regular rhythm Heart sounds: no murmurs GI Palpation (GI): Soft to palpation, nontender, no guarding, No hepatosplenomegaly present and No Rebound tenderness present Auscultation: normal bowel sounds General: Yes no CVA tenderness Back/Spine/Pelvis Back: no CVA tenderness Thoracic/Lumbar Spine: thoracic and lumbar spine normal to inspection Skin Rashes: no rashes Extrem General: Yes no clubbing, cyanosis or edema Coding Level of Care Code Est Pt Level 4 (67046) Diagnoses Abdominal discomfort in left upper quadrant R10.12 Raynaud's disease without gangrene I73.00 Raynaud?s-associated gangrene presence: without gangrene Benign microscopic hematuria R31.1 Elevated blood-pressure reading, without diagnosis of hypertension R03.0 Dermatitis L30.9 Tinnitus of both ears H93.13 Additional Codes PHQ-9 - 99708 - PHQ-9 Billing: Yes ([id number]) Assessment & Plan Assessment & Plan (1) Abdominal discomfort in left upper quadrant: Code(s): R10.12 - Left upper quadrant pain Category: Medical Plan: Have discussed with patient again that his left upper abdominal symptoms are likely due to gastritis Reinforced dietary restrictions Continue Omeprazole 20 mg QD PRN and Famotidine 20 mg Q HS PRN Have advised patient that he is now due for screening colonoscopy at his age (44) and when we refer him for this at his next physical exam in a few months, 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 as well together with his screening colonoscopy for further evaluation (2) Raynaud's syndrome: Code(s): I73.00 - Raynaud's syndrome without gangrene Category: Medical Qualifiers: Raynaud?s-associated gangrene presence: without gangrene Qualified Code(s): I73.00 - Raynaud's syndrome without gangrene Plan: Patient is cautioned again on avoidance of extremes of temperature (especially cold temperatures) as much as possible to minimize or prevent his symptoms from flaring up, and that he is more prone to develop frostbite injuries compared to the average individual Patient does not smoke and is encouraged to avoid second hand smoke as well There is no indication for any Rx or other interventions at this time (3) Benign microscopic hematuria: Code(s): R31.1 - Benign essential microscopic hematuria Category: Medical Plan: (+) trace hematuria on his labs done a couple of years ago - patient reports NO acute urinary symptoms His repeat urinalysis in November 2023 came back negative for RBCs or blood in his urine We will continue to monitor his urine periodically - will recheck this in a few months when he goes for his yearly labs (4) Elevated blood-pressure reading, without diagnosis of hypertension: Code(s): R03.0 - Elevated blood-pressure reading, without diagnosis of hypertension Category: Medical Plan: Reinforced low sodium diet Patient's blood pressure was initially very high at 148/102 mm when it was checked earlier this year but his BP gradually came down to 136/82 mm when it was rechecked later; his blood pressure is normal today Discussed with patient that his high blood pressure back then may be due to anxiety and stress as I recall that he mentioned feeling stressed out at the time with his undergoing treatment for breast cancer (5) Dermatitis: Code(s): L30.9 - Dermatitis, unspecified Category: Medical Plan: Continue Triamcinolone acetonide cream 0.025% apply to rash on hands 2 to 3 times a day as needed (6) Tinnitus of both ears: Code(s): H93.13 - Tinnitus, bilateral Category: Medical Plan: Will refer patient for hearing evaluation He is instructed to get some OTC Debrox eardrops to use in both ears for the next week or so to help reduce or clear out the ear wax in both ears so as not to affect the results of his hearing examination Plan To return in February 2025 for his next annual physical examination Patient is instructed to make sure he gets his labs done prior to coming in for his PE in a few months Orders: Orders Complete Blood Count Auto Diff 01/25/25 D64.9 - Anemia, unspecified, Z00.00 - Encounter for general adult medical examination without abnormal findings Comprehensive [place]. Panel Fast 01/25/25 E78.00 - Pure hypercholesterolemia, unspecified, Z00.00 - Encounter for general adult medical examination without abnormal findings TSH reflex Free T4 01/25/25 E78.00 - Pure hypercholesterolemia, unspecified, Z00.00 - Encounter for general adult medical examination without abnormal findings Vitamin D 25-OH Total 01/25/25 E55.9 - Vitamin D deficiency, unspecified Lipid Panel 01/25/25 E78.00 - Pure hypercholesterolemia, unspecified, Z00.00 - Encounter for general adult medical examination without abnormal findings UA CC w/rflx Micro + Cult 01/25/25 R30.0 - Dysuria, Z00.00 - Encounter for general adult medical examination without abnormal findings Referrals Speech and Hearing Referral H91.90 - Unspecified hearing loss, unspecified ear, H93.13 - Tinnitus, bilateral
== END 2024-10-21 16:10 | disposition home or self-care (01) ==
PROVIDERS: PCP Internal Medicine; Visit Provider Internal Medicine
DX: R10.12 Left upper quadrant pain (principal); I73.00 Raynaud's syndrome without gangrene; R31.1 Benign essential microscopic hematuria; R03.0 Elevated blood-pressure reading, without diagnosis of hypertension; L30.9 Dermatitis, unspecified; H93.13 Tinnitus, bilateral

== ENCOUNTER → 2024-10-21 15:19 | Outpatient (BNVA) | payer OTHER, SELFPAY | PROVIDERS: PCP Internal Medicine; Visit Provider Internal Medicine | DX: R10.12 Left upper quadrant pain (principal); I73.00 Raynaud's syndrome without gangrene; R31.1 Benign essential microscopic hematuria; R03.0 Elevated blood-pressure reading, without diagnosis of hypertension; L30.9 Dermatitis, unspecified; H93.13 Tinnitus, bilateral | CPT/HCPCS: 96127 ==

== ENCOUNTER 2024-11-10 07:50 | Outpatient (REF) | payer OTHER, SELFPAY | END 2024-11-10 07:51 | disposition home or self-care (01) | LOC: HO.SH 07:50 | PROVIDERS: Visit Provider Internal Medicine | DX: Z01.118 Encounter for examination of ears and hearing with other abnormal findings (principal); H61.22 Impacted cerumen, left ear | CPT/HCPCS: 92567 ==

== ENCOUNTER 2024-12-01 12:28 | Outpatient (AMB) | payer OTHER, SELFPAY ==
--- NOTE | 2024-12-01 12:58 | MHC.PC.OV ---
Vital Signs 12/01/24 12:59 Height 6 ft Weight 174 lb BMI 23.6 BP 116/78 Blood Pressure Location Lt brachial Position Sitting Pulse 78 Pulse Source Pulse Oximeter Pulse Oximetry (%) 98 Oxygen Delivery Method Room Air Intake Visit Reasons: f/u speech and hearing Service Attendant Required: No Accompanied by: Self / Same As Patient Allergies bee sting Allergy (Unknown, Uncoded 12/07/24 03:34) Unknown Medication List - Last Reconciled 12/07/24 by Jordon Tenorio MD famotidine 20 mg PO BEDTIME PRN 30 days omeprazole 20 mg PO DAILY 30 days terbinafine HCl 250 mg PO DAILY 90 days Tobacco use date assessed: 12/01/24 Dental Screening Dental Screen Date: 12/01/24 Did you have a dental visit in the last 12 months?: No Did you have a dental problem in the last 6 months where you did not have access to dental care?: No Was dental information given to patient?: No HPI f/u speech and hearing HPI Details Patient comes in today for follow up of his hearing/ear issues States that he still has persistent tinnitus and decreased hearing Relates that an audiogram was not done due to impacted cerumen in his L ear Patient states that he has been using Debrox ear drops and using an ear syringe at home on his own for the past 2 to 3 weeks now and appears to be unsuccessful so far in clearing out his left ear He denies any ear pain and no other acute complaints or symptoms are noted [facility] Medical History No significant past medical history Surgical History No pertinent past surgical history Family History Father Alive and well Mother Alive and well Social History Housing: House Alcohol intake: current Alcohol intake frequency: a few times a month Patient Tobacco Use Status: Never used Tobacco e-Cigarette/Vaping Use: Never Used Second Hand Smoke Exposure: No service: Yes Current occupational status: employed Cognitive needs: No Hearing needs: No Vision needs: No Questionnaire PHQ-9 Over the last 2 weeks, how often have you been bothered by any of the following problems? 1. Little interest or pleasure in doing things: not at all 2. Feeling down, depressed, or hopeless: not at all 3. Trouble falling or staying asleep, or sleeping too much: not at all 4. Feeling tired or having little energy: not at all 5. Poor appetite or overeating: not at all 6. Feeling bad about yourself - or that you are a failure or have let yourself or your family down: not at all 7. Trouble concentrating on things, such as reading the newspaper or watching television: not at all 8. Moving or speaking so slowly that other people could have noticed. Or the opposite - being so fidgety or restless that you have been moving around a lot more than usual: not at all 9. Thoughts that you would be better off or of hurting yourself in some way: not at all Total score: 0 Depression Screening Interpretation: Negative Depression Screening Done: Yes 07498 - PHQ-9 Billing: Yes Source: Developed by Drs. Mike Lin, Sneha Manzo, Kunal Almaraz and colleagues, with an educational mainor from [employer]. Thrive Questionnaire Date Thrive assessed: 12/01/24 I am a: Patient What is your living situation today?: I have a steady place to live Within the past 12 months, did the food you bought not last and you didn't have the money to get more?: Never true Within the past 12 months, did you worry whether your food would run out before you got money to buy more?: Never true Do you have trouble paying for medicines?: No Do you have trouble getting transportation to medical appointments?: No Do you have trouble paying your heating and electricity bill?: No Do you have trouble taking care of your child, family member or friend?: No Do you have trouble with day-to-day activities such as bathing, preparing meals, shopping, managing finances, etc.?: No Are you currently unemployed and looking for a job?: No Are you interested in more education?: No Please select the resources that you would like help with: None Currently or been in a relationship where the following occur: No concerns reported THRIVE Score: 0 AUDIT C Alcohol Use Questionnaire (AUDIT-C) 1. How often do you have a drink containing alcohol?: Monthly or less 2. How many drinks containing alcohol do you have on a typical day when you are drinking?: 1 or 2 3. How often do you have six or more drinks on one occasion?: Never Total Score: 1 Score Reviewed/Action Taken: Yes MARLO-7 AMB Questionnaire MARLO-7 Date MARLO - 7 assessed: 12/01/24 Feeling nervous, anxious, or on edge: 0 = Not at all Not being able to stop or control worryin = Not at all Worrying too much about different things: 0 = Not at all Trouble relaxin = Not at all Being so restless that it is hard to sit still: 0 = Not at all Becoming easily annoyed or irritable: 0 = Not at all Feeling afraid as if something awful might happen: 0 = Not at all Total MARLO-7 score (0-4 normal; 5-9 mild; 10-14 moderate; 15-21 severe): 0 Source: Developed by Drs. Mike Lin, Sneha Manzo, Kunal Almaraz and colleagues, with an educational mainor from [employer]. Review of Systems Const Denies fatigue, Denies fever(s) and Denies headache(s) ENT Denies dysphagia, Denies dizziness, Denies otalgia, Denies headache(s), Reports hearing loss, Denies neck pain, Reports tinnitus (persistent; in both ears) and Denies sore throat Card Denies chest pain, Denies palpitations and Denies dyspnea Resp Denies cough and Denies dyspnea GI Denies abdominal pain, Denies constipation, Denies dysphagia, Denies heartburn, Denies diarrhea, Denies nausea and Denies vomiting Denies difficulty urinating, Denies dysuria and Denies urinary frequency Musc Denies back pain, Denies arthralgias and Denies neck pain Skin/Breast Denies rash Neuro Denies dizziness, Denies headache(s) and Denies paresthesias Endo Denies fatigue and Denies palpitations Physical exam (Primary Care) Vital Signs: Last Vital Signs Pulse 78 12/01/24 12:59 BP 116/78 12/01/24 12:59 Pulse Ox 98 12/01/24 12:59 Oxygen Delivery Method Room Air 12/01/24 12:59 BMI result Body Mass Index 23.6 Tobacco/Smoking Status: Tobacco use Status Tobacco use date assessed 12/01/24 12/01/24 13:03 Patient Tobacco Use Status Never used Tobacco 12/01/24 13:03 e-Cigarette/Vaping Use Never Used 12/01/24 13:03 PHQ-9: PHQ-9 Score PHQ-9: Total score 0 12/01/24 13:38 Depression Screening Interpretation: Negative Thrive Assessment: Date of Thrive Assessment Date Thrive assessed 12/01/24 12/01/24 13:03 Currently or been in a relationship where the following occur: No concerns reported Const General: no acute distress and alert HENMT Ears: TM normal on the right, Abnormal EAC present cerumen impaction on the left and unable to visualize TM on the left (due to impacted cerumen in the left ear canal) Throat: Yes posterior oropharynx normal and Yes tonsils normal (no TP congestion) Neck Neck: Yes supple and No lymphadenopathy Resp Auscultation: clear to auscultation bilaterally, no rales and no wheezes Cardio Rate: regular rate Rhythm: regular rhythm Heart sounds: no murmurs GI Palpation (GI): Soft to palpation and nontender Auscultation: normal bowel sounds General: Yes no CVA tenderness Back/Spine/Pelvis Back: no CVA tenderness Skin Rashes: no rashes Extrem General: Yes no clubbing, cyanosis or edema Coding Level of Care Code Est Pt Level 3 (34714) Diagnoses Impacted cerumen of left ear H61.22 Additional Codes PHQ-9 - 15159 - PHQ-9 Billing: Yes ([id number]) Assessment & Plan Assessment & Plan (1) Impacted cerumen of left ear: Code(s): H61.22 - Impacted cerumen, left ear Category: Medical Plan: Have discussed with patient that we can attempt an ear irrigation/extraction of his impacted cerumen with an ear currette but I am unable to guarantee whether we will be successful or not as the cerumen inside his left ear canal appears to be quite extensive and seems to be embedded well inside his ear Patient requested to see ENT instead - will refer him to ENT for further management Have instructed patient in the meantime to continue applying Debrox ear drops into his left ear regularly until he is seen by ENT and this may help make it easier to clear up his left ear canal later on He will return to speech and hearing once his ear is cleared up to resume testing on his hearing Plan To return as scheduled in February 2025 for his annual physical examination Orders: Referrals Ear/Nose/Throat Referral H61.22 - Impacted cerumen, left ear
[2024-12-01 12:59] VITALS: BP 116/78; PULSE 78; O2SAT 98; BMI 23.6
== END 2024-12-01 13:33 | disposition home or self-care (01) ==
PROVIDERS: PCP Internal Medicine; Visit Provider Internal Medicine
DX: H61.22 Impacted cerumen, left ear (principal)

== ENCOUNTER → 2024-12-01 12:28 | Outpatient (BNVA) | payer OTHER, SELFPAY | PROVIDERS: PCP Internal Medicine; Visit Provider Internal Medicine | DX: H61.22 Impacted cerumen, left ear (principal) | CPT/HCPCS: 96127 ==

== ENCOUNTER 2025-02-12 06:28 | Outpatient (REF) | payer OTHER, SELFPAY ==
[2025-02-12 06:53] LABS: MANUAL DIFF FLAG NO
[2025-02-12 07:09] LABS: Basophils Percent Auto 0.2 % (0-2); Eosinophils Absolute Auto 0.1 X10*3/uL (0.0-0.4); Eosinophils Percent Auto 1.6 % (0-4); Hematocrit 43.9 % (42.0-52.0); Hemoglobin 14.8 g/dl (14.0-18.0); Imm Gran Abs Auto 0.02 X10*3/uL (0.00-0.03); Imm Gran Pct Auto 0.4 % (0.0-0.4); Lymphocytes Absolute Auto 1.1 X10*3/uL (1.2-4.9); Lymphocytes Percent Auto 24.8 % (20-40); Mean Corpuscular HGB Conc 33.7 g/dl (31.0-36.0); Mean Corpuscular Volume 97.8 fL (80.0-98.0); Mean Platelet Volume 9.7 fL (9.4-12.4); Monocytes Absolute Auto 0.4 X10*3/uL (0.1-1.2); Monocytes Percent Auto 8.7 % (2-11); Neutrophils Absolute Auto 2.9 x10*3/uL (2.0-8.3); Neutrophils Percent Auto 64.3 % (45-73); Platelet Count 200 X10*3/uL (160-400); Red Blood Count 4.49 X10*6/uL (4.60-5.80); Red Cell Distribution Width 11.9 % (11.0-16.0); White Blood Count 4.5 X10*3/uL (4.8-10.8)
[2025-02-12 07:23] LABS: Appearance Urine Clear; Color Urine Yellow; Glucose Urine UA Negative (Negative); Leukocyte Esterase Urine Negative (Negative); Nitrite Urine Negative (Negative); Urine Blood Negative (Negative); Urine Ketones Negative (Negative); Urine Protein Negative (Neg-Trace)
[2025-02-12 07:35] LABS: Alanine Aminotransferase 28 U/L (0-40); Albumin Level 4.4 g/dL (3.5-5.0); Alkaline Phosphatase 54 U/L (39-117); Anion Gap 11 (12-20); Aspartate Amino Transferase 21 U/L (5-37); Bilirubin Total 0.8 mg/dL (0.0-1.0); Blood Urea Nitrogen 19 mg/dL (9-16); Calcium 9.4 mg/dL (8.4-10.2); Carbon Dioxide 27 mmol/L (22-29); Chloride 106 mmol/L (96-108); Cholesterol 158 mg/dL (<200); Estimated Glomerular Filt Rate > 60; Glucose Fasting 97 mg/dL (60-99); HDL Cholesterol 64 mg/dL (>40); LDL Cholesterol Calculated 82 mg/dL (<100); Potassium 4.6 mmol/L (3.3-5.1); Sodium 139 mmol/L (135-145); Total Protein 7.2 g/dL (6.5-8.0); Triglycerides 61 mg/dL (<150)
[2025-02-12 07:51] LABS: TSH reflex Free T4 2.62 uIU/mL (0.32-4.0); Vitamin D 25-OH Total 50.8 ng/mL (>30)
== END 2025-02-12 06:29 | disposition home or self-care (01) ==
LOC: HO.LAB 06:28
PROVIDERS: PCP Internal Medicine; Visit Provider Internal Medicine
DX: Z00.00 Encounter for general adult medical examination without abnormal findings (principal); E78.00 Pure hypercholesterolemia, unspecified; R30.0 Dysuria; D64.9 Anemia, unspecified; E55.9 Vitamin D deficiency, unspecified
CPT/HCPCS: 36415; 80053; 80061; 81003; 82306; 84443; 85025

== ENCOUNTER 2025-02-19 16:09 | Outpatient (AMB) | payer OTHER, SELFPAY ==
[2025-02-19 16:22] VITALS: BP 112/68; PULSE 68; O2SAT 98; BMI 23.5
--- NOTE | 2025-02-19 16:22 | MHC.PC.OV ---
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 Accompanied by: Self / Same As Patient Allergies bee sting Allergy (Unknown, Uncoded 02/19/25 16:41) Unknown Medication List - Last Reconciled 02/19/25 by Jordon Tenorio MD famotidine 20 mg PO BEDTIME PRN 30 days omeprazole 20 mg PO DAILY 30 days terbinafine HCl 250 mg PO DAILY 90 days Tobacco use date assessed: 02/19/25 Dental Screening Dental Screen Date: 02/19/25 Did you have a dental visit in the last 12 months?: No Did you have a dental problem in the last 6 months where you did not have access to dental care?: No Was dental information given to patient?: Patient has dentist HPI annual PE HPI Details Patient comes in today for his annual physical examination States that he feels okay He denies any headaches or dizziness Denies any chest pains, no shortness of breath No nausea/vomiting; states that he still has occasional pain/pressure over his left upper abdominal area but these are mostly mild and resolve on their own after a few minutes He had abdominal US done to check into this a couple of years ago and his sonogram came back completely normal Patient states that his symptoms have not progressed or gotten any worse over the past couple of years No change in bowel habits noted He denies any acute urinary symptoms He had his follow-up labs done last week - to discuss his results He is also now due to start colon cancer screening [facility] Medical History No significant past medical history Surgical History No pertinent past surgical history Family History Father Alive and well Mother Alive and well Social History Housing: House Alcohol intake: current Alcohol intake frequency: a few times a month Patient Tobacco Use Status: Never used Tobacco e-Cigarette/Vaping Use: Never Used Second Hand Smoke Exposure: No service: Yes Current occupational status: employed Current occupational exposures/hazards: No Cognitive needs: No Hearing needs: No Vision needs: Yes Questionnaire PHQ-9 Over the last 2 weeks, how often have you been bothered by any of the following problems? 1. Little interest or pleasure in doing things: not at all 2. Feeling down, depressed, or hopeless: not at all 3. Trouble falling or staying asleep, or sleeping too much: not at all 4. Feeling tired or having little energy: not at all 5. Poor appetite or overeating: not at all 6. Feeling bad about yourself - or that you are a failure or have let yourself or your family down: not at all 7. Trouble concentrating on things, such as reading the newspaper or watching television: not at all 8. Moving or speaking so slowly that other people could have noticed. Or the opposite - being so fidgety or restless that you have been moving around a lot more than usual: not at all 9. Thoughts that you would be better off or of hurting yourself in some way: not at all Total score: 0 Depression Screening Interpretation: Negative Depression Screening Done: Yes 12364 - PHQ-9 Billing: Yes Source: Developed by Drs. Mike Lin, Sneha Manzo, Kunal Almaraz and colleagues, with an educational mainor from [employer]. Thrive Questionnaire Date Thrive assessed: 02/19/25 I am a: Patient What is your living situation today?: I have a steady place to live Within the past 12 months, did the food you bought not last and you didn't have the money to get more?: Never true Within the past 12 months, did you worry whether your food would run out before you got money to buy more?: Never true Do you have trouble paying for medicines?: No Do you have trouble getting transportation to medical appointments?: I choose not to answer this question Do you have trouble paying your heating and electricity bill?: I choose not to answer this question Do you have trouble taking care of your child, family member or friend?: I choose not to answer this question Do you have trouble with day-to-day activities such as bathing, preparing meals, shopping, managing finances, etc.?: I choose not to answer this question Are you currently unemployed and looking for a job?: I choose not to answer this question Are you interested in more education?: I choose not to answer this question Please select the resources that you would like help with: None Currently or been in a relationship where the following occur: I choose not to answer THRIVE Score: 0 AUDIT C Alcohol Use Questionnaire (AUDIT-C) 1. How often do you have a drink containing alcohol?: Monthly or less 2. How many drinks containing alcohol do you have on a typical day when you are drinking?: 1 or 2 3. How often do you have six or more drinks on one occasion?: Less than monthly Total Score: 2 Score Reviewed/Action Taken: Yes MARLO-7 AMB Questionnaire MARLO-7 Date MARLO - 7 assessed: 02/19/25 Feeling nervous, anxious, or on edge: 0 = Not at all Not being able to stop or control worryin = Not at all Worrying too much about different things: 0 = Not at all Trouble relaxin = Not at all Being so restless that it is hard to sit still: 0 = Not at all Becoming easily annoyed or irritable: 0 = Not at all Feeling afraid as if something awful might happen: 0 = Not at all Total MARLO-7 score (0-4 normal; 5-9 mild; 10-14 moderate; 15-21 severe): 0 Source: Developed by Drs. Mike Lin, Sneha Manzo, Kunal Almaraz and colleagues, with an educational mainor from [employer]. Review of Systems Const Denies chills, Denies fatigue, Denies fever(s), Denies headache(s), Denies malaise and Denies weakness Eyes Denies blurry vision, Denies change in vision, Denies irritation and Denies itchy eyes ENT Denies dysphagia, Denies dizziness, Denies otalgia, Denies headache(s), Denies nasal congestion, Denies neck pain, Denies odynophagia, Reports tinnitus (on and off in both ears) and Denies sore throat Card Denies chest pain, Denies rapid heart rate, Denies irregular heart rhythm, Denies palpitations and Denies dyspnea Resp Denies chest congestion, Denies cough, Denies dyspnea and Denies wheezing GI Reports abdominal pain (on and off over the left upper abdomen - see HPI), Denies bloating, Denies constipation, Denies dysphagia, Denies heartburn, Denies diarrhea, Denies nausea, Denies odynophagia and Denies vomiting Denies hematuria, Denies difficulty urinating, Denies dysuria, Denies urinary frequency and Denies urinary urgency Musc Denies back pain, Denies arthralgias, Denies joint swelling, Denies muscle weakness and Denies neck pain Skin/Breast Denies change in pigmentation, Denies lesions, Denies rash and Denies unusual bruising Neuro Denies dizziness, Denies headache(s), Denies paresthesias and Denies weakness Endo Denies fatigue and Denies palpitations Aller/Immun Denies itchy eyes and Denies wheezing Physical exam (Primary Care) Vital Signs: Last Vital Signs Pulse 68 02/19/25 16:22 BP 112/68 02/19/25 16:22 Pulse Ox 98 02/19/25 16:22 Oxygen Delivery Method Room Air 02/19/25 16:22 BMI result Body Mass Index 23.5 Tobacco/Smoking Status: Tobacco use Status Tobacco use date assessed 02/19/25 02/19/25 16:25 Patient Tobacco Use Status Never used Tobacco 02/19/25 16:25 e-Cigarette/Vaping Use Never Used 02/19/25 16:25 PHQ-9: PHQ-9 Score PHQ-9: Total score 0 02/19/25 16:43 Depression Screening Interpretation: Negative Thrive Assessment: Date of Thrive Assessment Date Thrive assessed 02/19/25 02/19/25 16:25 Currently or been in a relationship where the following occur: I choose not to answer Const General: no acute distress, alert and awake Orientation/consciousness: patient oriented x3 HENMT Head: Yes normocephalic and Yes atraumatic Ears: external ears normal, TM's normal bilaterally and EAC's normal (but (+) cerumen (not impacted) in the left ear canal ) General nose exam: No nasal discharge present Face and sinus: Yes normal facial exam and Yes sinuses nontender Teeth and gingiva: dentition normal Throat: Yes posterior oropharynx normal and Yes tonsils normal (no TP congestion) Eyes Eyelids: Yes eyelids normal Conjunctivae: conjunctivae normal Pupils: Equal, round and reactive pupils present EOM: EOMs intact bilaterally Neck Neck: Yes no lymphadenopathy and Yes supple Thyroid: Thyroid normal Resp Auscultation: clear to auscultation bilaterally, no rales and no wheezes Cardio Rate: regular rate Rhythm: regular rhythm Heart sounds: no murmurs GI Palpation (GI): Soft to palpation, nontender and No hepatosplenomegaly present Auscultation: normal bowel sounds General: Yes no CVA tenderness Back/Spine/Pelvis Back: no CVA tenderness Thoracic/Lumbar Spine: thoracic and lumbar spine normal to inspection Skin Lesions: no lesions Rashes: no rashes Neuro General: patient oriented x3, moves all extremities, no focal motor deficits and CN's II-XI intact bilaterally Cranial nerves: Yes Equal, round and reactive pupils present Cognition (Neuro): normal cognition Gait exam (Neuro): Normal gait present Extrem General: Yes no clubbing, cyanosis or edema Results Reviewed Results Reviewed: Laboratory Tests 02/12/25 02/12/25 06:48 06:51 WBC 4.5 L Hgb 14.8 Hct 43.9 Plt Count 200 Sodium 139 Potassium 4.6 Creatinine 0.95 Estimated GFR > 60 Fasting Glucose 97 Calcium 9.4 AST 21 ALT 28 Triglycerides 61 Cholesterol 158 LDL Cholesterol, Calc 82 HDL Cholesterol 64 25-OH Vitamin D Total 50.8 TSH 2.62 Ur Specific [place] 1.010 Urine Protein Negative Urine Glucose (UA) Negative Urine Blood Negative Urine Nitrite Negative Ur Leukocyte Esterase Negative Coding Level of Care Code Est Pt Prev Care 40-64y(98828) Diagnoses Annual physical exam Z00.00 Abdominal discomfort in left upper quadrant R10.12 Tinnitus of both ears H93.13 Raynaud's disease without gangrene I73.00 Raynaud?s-associated gangrene presence: without gangrene Benign microscopic hematuria R31.1 Dermatitis L30.9 Colon cancer screening Z12.11 Additional Codes PHQ-9 - 20350 - PHQ-9 Billing: Yes ([id number]) Assessment & Plan Assessment & Plan (1) Annual physical exam: Code(s): Z00.00 - Encounter for general adult medical examination without abnormal findings Category: Medical Plan: Results of his labs done last week reviewed and discussed with patient He is now due to start colon cancer screening (2) Abdominal discomfort in left upper quadrant: Code(s): R10.12 - Left upper quadrant pain Category: Medical Plan: Have discussed with patient again that his on and off left upper abdominal symptoms are likely due to gastritis Reinforced dietary restrictions Continue Omeprazole 20 mg QD PRN and Famotidine 20 mg Q HS PRN Have advised patient to discuss this with GI to consider doing an upper endoscopy for further evaluation at the same time when he has his screening colonoscopy done (3) Tinnitus of both ears: Code(s): H93.13 - Tinnitus, bilateral Category: Medical Plan: Patient was previously referred for hearing evaluation he states that this has not been done yet due to the recurrent impacted cerumen in his left ear Patient is instructed to start applying OTC Debrox eardrops in his left ear BID x 1 week regularly each month to keep cerumen from building up in his ear and he can then call to have his hearing evaluation scheduled as soon as possible (4) Raynaud's syndrome: Code(s): I73.00 - Raynaud's syndrome without gangrene Category: Medical Qualifiers: Raynaud?s-associated gangrene presence: without gangrene Qualified Code(s): I73.00 - Raynaud's syndrome without gangrene Plan: Patient is cautioned again on avoidance of extremes of temperature (especially cold temperatures) as much as possible to minimize or prevent his symptoms from flaring up, and that he is more prone to develop frostbite injuries compared to the average individual Patient does not smoke and is encouraged to avoid second hand smoke as well There is no indication for any Rx or other interventions at this time (5) Benign microscopic hematuria: Code(s): R31.1 - Benign essential microscopic hematuria Category: Medical Plan: (+) trace hematuria on his labs done a couple of years ago - patient reports NO acute urinary symptoms His repeat urinalysis in November 2023 and last week both came back negative for RBCs or blood in his urine We will continue to monitor his urine periodically (6) Dermatitis: Code(s): L30.9 - Dermatitis, unspecified Category: Medical Plan: Continue Triamcinolone acetonide cream 0.025% apply to rash on hands 2 to 3 times a day as needed (7) Colon cancer screening: Code(s): Z12.11 - Encounter for screening for malignant neoplasm of colon Category: Medical Plan: Will refer patient to GI for screening colonoscopy Plan To return in 1 year for his next annual physical examination Orders: Orders Lipid Panel 1 Year E78.00 - Pure hypercholesterolemia, unspecified, Z00.00 - Encounter for general adult medical examination without abnormal findings TSH reflex Free T4 1 Year E78.00 - Pure hypercholesterolemia, unspecified, Z00.00 - Encounter for general adult medical examination without abnormal findings UA CC w/rflx Micro + Cult 1 Year R30.0 - Dysuria, Z00.00 - Encounter for general adult medical examination without abnormal findings Complete Blood Count Auto Diff 1 Year D64.9 - Anemia, unspecified, Z00.00 - Encounter for general adult medical examination without abnormal findings Comprehensive [place]. Panel Fast 1 Year E78.00 - Pure hypercholesterolemia, unspecified, Z00.00 - Encounter for general adult medical examination without abnormal findings Vitamin D 25-OH Total 1 Year E55.9 - Vitamin D deficiency, unspecified, Z00.00 - Encounter for general adult medical examination without abnormal findings Prostate Specific Antigen Scr 1 Year Z00.00 - Encounter for general adult medical examination without abnormal findings Referrals Gastroenterology Referral R10.12 - Left upper quadrant pain, Z12.11 - Encounter for screening for malignant neoplasm of colon
== END 2025-02-19 16:51 | disposition home or self-care (01) ==
LOC: HO.HMCH 16:09
PROVIDERS: PCP Internal Medicine; Visit Provider Internal Medicine
DX: Z00.00 Encounter for general adult medical examination without abnormal findings (principal); R10.12 Left upper quadrant pain; H93.13 Tinnitus, bilateral; I73.00 Raynaud's syndrome without gangrene; R31.1 Benign essential microscopic hematuria; L30.9 Dermatitis, unspecified; Z12.11 Encounter for screening for malignant neoplasm of colon

== ENCOUNTER → 2025-02-19 16:09 | Outpatient (BNVA) | payer OTHER, SELFPAY | PROVIDERS: PCP Internal Medicine; Visit Provider Internal Medicine | DX: Z00.00 Encounter for general adult medical examination without abnormal findings (principal); R10.12 Left upper quadrant pain; H93.13 Tinnitus, bilateral; I73.00 Raynaud's syndrome without gangrene; R31.1 Benign essential microscopic hematuria; L30.9 Dermatitis, unspecified; Z79.899 Other long term (current) drug therapy | CPT/HCPCS: 96127 ==